=== PATIENT | female | born 1995 | race Caucasian/White ===

== ENCOUNTER → 2019-03-20 | Emergency (ER) | payer SELFPAY ==
[~2019-03-20] VITALS: Ht 157.5 cm; Wt 46.7 kg
--- NOTE | 2019-03-20 04:00 | NUR ---
BIB SELF, WITH COMPLAINT OF NONPRODUCTIVE COUGH FOR 2 WEEKS NOT RELIEVED BY TESSALON PERLES. -FEVER, -EARACHE, -NASAL CONGESTION. SEEN AND EXAMINED BY DR. ROMERO.
--- NOTE | 2019-03-20 04:09 | NUR ---
D/C PATIENT IN STABLE CONDITION, AMBULATORY, BY SELF. HEALTH TEACHINGS, D/C INSTRUCTIONS AND PRESCRIPTION GIVEN. INSTRUCTED PATIENT TO SEEK MEDICAL ADVICE FOR WORSENING CONDITION. PATIENT LEFT THE ER AT THIS TIME.
[2019-03-20 04:15] VITALS: BP 101/68
== END | disposition home or self-care (01) ==
LOC: ER 03:48
DX: J20.8 Acute bronchitis due to other specified organisms (principal); Z88.8 Allergy status to other drugs, medicaments and biological substances